=== PATIENT | female | born 1975 | race Caucasian/White ===

== ENCOUNTER 2022-09-04 11:46 | Day surgery (SDC) | payer SELFPAY ==
[2022-09-04] VITALS (31 sets, daily range): BP systolic 106–129; BP diastolic 71–86; PULSE 73–99; RESP 16–20; TEMP 36.6–37; O2SAT 95–99; BMI 29.8; BMI 29.7
--- NOTE | 2022-09-04 12:01 | CRLHL7_ITS ---
For Patients: As a result of the Century Cures Act, medical imaging exams and procedure reports are released immediately into your electronic medical record. You may view this report before your referring provider. If you have questions, please contact your health care provider. INDICATION: Chest pain. TECHNIQUE: CT chest PE was acquired with 95 cc Isovue 370 IV contrast. COMPARISON: None. FINDINGS: Heart and vasculature: Contrast opacification of the pulmonary arterial tree is adequate. No sign of pulmonary embolism. Heart size is normal. Thoracic aorta and pulmonary artery are normal in caliber. Lungs and pleura: No suspicious nodules or infiltrates. No pleural effusions, pleural thickening, or pneumothorax. Lymph nodes/mediastinum: No mediastinal, hilar, or axillary adenopathy. Chest wall: No masses. Upper abdomen: Subtle fat stranding surrounding the gallbladder with possible gallbladder wall thickening, partially visualized. Bones: Unremarkable for age. IMPRESSION: No pulmonary embolism identified. No acute cardiopulmonary process identified. Subtle surrounding fat stranding and possible gallbladder wall thickening, partially visualized in the upper abdomen. If there is clinical concern for cholecystitis consider further evaluation with right upper quadrant ultrasound. Please note that all CT scans at this facility use dose modulation, iterative reconstruction, and/or weight-based dosing when appropriate to reduce radiation dose to as low as reasonably achievable. Dictated by Tony Rodriguez MD @ 09/04/2022 1:06:22 PM (Electronically Signed)
--- NOTE | 2022-09-04 12:03 | CRLHL7_ITS ---
For Patients: As a result of the Century Cures Act, medical imaging exams and procedure reports are released immediately into your electronic medical record. You may view this report before your referring provider. If you have questions, please contact your health care provider. INDICATION: Right upper quadrant abdomen pain. TECHNIQUE: Ultrasound abdomen limited. Sonographic images of the right upper quadrant were obtained using johnson-scale and color Doppler images. COMPARISON: None. FINDINGS: Liver: Normal in size and echotexture. No suspicious masses. No intrahepatic biliary dilatation. Gallbladder: Multiple shadowing gallstones. Gallbladder thick-walled edematous, measuring up to 7 millimeters in thickness with trace pericholecystic fluid. The tensile tester reported a positive sonographic Mccormick`s sign. Common bile duct: 4 mm. Pancreas: Unremarkable. Right kidney: Normal in size. Normal echotexture and cortex. No suspicious masses, stones, or hydronephrosis. Vasculature: Proximal abdominal aorta and IVC are unremarkable. IMPRESSION: Cholelithiasis with gallbladder wall thickening and edema and a positive sonographic Mccormick sign. Findings concerning for acute cholecystitis Dictated by Alexandre Willett MD @ 09/04/2022 2:13:23 PM (Electronically Signed)
--- NOTE | 2022-09-04 12:12 | ED_ITS ---
HPI - General Adult General Time Seen by Provider: 12:12 Date Seen: 09/04/22 Chief complaint: Abdominal Pain Stated complaint: Severe chest pain Time Seen by Provider: 09/04/22 11:47 Source: patient Mode of arrival: ambulatory Limitations: no limitations History of Present Illness HPI narrative: Patient is a 46 year white female presents with epigastric and lower chest pain this been present for the last 24 hours or more. Woke her up from sleep about 5:00 a.m. yesterday it has persisted and gotten little bit worse. She has no history of reflux, no anterior chest pain but describes it in her epigastrium and lower xiphoid area. She has had no cough cold fever, no history of bleeding or clotting problems, she does smoke. She has otherwise been quite healthy nondiabetic nonhypertensive. Patient has had no leg swelling or edema no bleeding or clotting problems she has not traveled recently. She describes her pain as severe in her epigastrium and lower chest wall Related Data Allergies Allergy/AdvReac Type Severity Reaction Status Date / Time No Known Drug Allergies Allergy Verified 09/04/22 11:53 Review of Systems Status of ROS: Reports: 10 or more systems reviewed and unremarkable except as noted in History and below PFSH PFS Social History Smoking Status: Current every day smoker What tobacco products do you use: cigarettes Smoking packs per day: 0.5 Smoking cigarettes per day: 10.0 Years smoked: 30 Smoking pack-years: 15.00 Do you use any of these nicotine containing products: None Second hand tobacco smoke exposure: Yes How often do you have a drink containing alcohol: monthly or less How many standard drinks containing alcohol do you have on a typical day: 1 or 2 How often do you have six or more drinks on one occasion: Never AUDIT-C Alcohol total score: 1 Non-prescribed substance use: denies use service: No Exam Narrative: Exam Narrative: Objective: Patient is in mild distress and discomfort alert orient x3 noncyanotic Vital signs unremarkable HEENT is unremarkable no facial asymmetry no scleral icterus mouth clear Neck is supple Chest clear Heart rhythm without murmur Patient has some mild pleuritic nature to her pain when she takes deep breath it causes some discomfort in the lower chest wall and epigastrium No palpable masses in her abdomen abdomen is otherwise benign, just a little bit of tenderness in her epigastrium I palpate, no mass no peritonitis Extremities are no edema Neurologic nonfocal Skin warm and dry Const: Vital Signs, click to edit/add: Vital Signs - 24 hr 09/04/22 11:54 09/04/22 12:31 09/04/22 11:57 Temperature 97.9 F 97.9 F Pulse Rate 90 Pulse Rate [Pulse Oximeter] 92 Respiratory Rate 20 Blood Pressure 124/79 Blood Pressure [Ri ght Upper Arm] 124/79 Pulse Oximetry 99 97 99 Oxygen Delivery Me thod Room Air 09/04/22 11:58 09/04/22 12:00 Temperature Pulse Rate 99 95 Pulse Rate [Pulse Oximeter] Respiratory Rate Blood Pressure Blood Pressure [Ri ght Upper Arm] Pulse Oximetry 99 99 Oxygen Delivery Me thod Course Vital Signs Vital signs: Initial Vital Signs Temperature 97.9 F 09/04/22 11:54 Temperature Source Temporal Artery Scan 09/04/22 11:54 Pulse Rate 92 09/04/22 11:54 Pulse Rhythm 09/04/22 11:54 Respiratory Rate 20 09/04/22 11:54 Blood Pressure 124/79 09/04/22 11:54 Blood Pressure Mean 94 09/04/22 11:54 Blood Pressure Position Supine 09/04/22 11:54 Pulse Oximetry 99 09/04/22 11:54 Oxygen Delivery Method 09/04/22 11:54 Vital Signs Temperature 97.9 F 09/04/22 11:54 Pulse Rate 92 09/04/22 11:54 Respiratory Rate 20 09/04/22 11:54 Blood Pressure 124/79 09/04/22 11:54 Pulse Oximetry 99 09/04/22 11:54 Oxygen Delivery Method 09/04/22 11:54 Temperature 97.9 F 09/04/22 11:57 Pulse Rate 95 09/04/22 12:00 Respiratory Rate 20 09/04/22 11:54 Blood Pressure 124/79 09/04/22 11:57 Pulse Oximetry 97 09/04/22 12:31 Oxygen Delivery Method 09/04/22 11:54 Medical Decision Making [facility] Narrative Medical decision making narrative: Patient is a 46 year white female with epigastric lower chest wall pain. At this point I think we have a significant differential including acute coronary syndrome, PE, gallbladder issues, peptic ulcer disease. Patient will get a GI cocktail, will give her aspirin as well, EKG done in by my read shows normal sinus rhythm incomplete right bundle-branch block no acute ST T wave changes. Patient will get a CT scan of the chest to rule out PE in other intrathoracic pathology, will get right upper quadrant ultrasound, check labs including a CBC liver function profile lipase amylase, CRP. Patient is comfortable assessment and plan at this point. Will give her IV fluid IV morphine and IV Protonix. Addendum: The patient has an elevated white count, she has an ultrasound that shows gallbladder wall thickening pericholecystic fluid, possibly a gallbladder neck stone. Her liver function tests look unremarkable. The patient's CT scan shows no PE but gallbladder inflammation as well. Her D-dimer is elevated likely due to the gallbladder infection. Discussed the case with Dr. Le who kindly will check on the patient and give update about surgical intervention. Patient last reported eating last night. Lab Data Labs: Lab Results 09/04/22 09/04/22 09/04/22 Range/Units 12:07 12:07 12:07 WBC 13.93 H (4.50-11.00) K/uL RBC 4.86 (4.00-5.20) m/uL Hgb 14.7 (12.0-16.0) gm/dL Hct 43.2 (33.0-51.0) % MCV 89 (80-100) fL MCH 30 (26-34) pg MCHC 34 (32-36) gm/dL RDW Coeff of June 12.1 (11.5-15.5) % Plt Count 373 (140-440) K/uL Neut % (Auto) 76.5 H (42.0-72.0) % Lymph % (Auto) 16.5 L (20-44) % [place] % (Auto) 6.2 (0.0-11.0) % Eos % (Auto) 0.6 (0.0-7.0) % Baso % (Auto) 0.1 (0.0-3.0) % Neut # (Auto) 10.70 H (1.7-7.0) K/uL Lymph # (Auto) 2.30 (0.90-2.90) K/uL [place] # (Auto) 0.90 (0.00-0.90) K/UL Eos # (Auto) 0.10 (0.00-0.50) K/uL Baso # (Auto) 0.00 (0.00-0.30) K/uL D-Dimer Quant (PE/DVT) 0.89 H (0.00-0.50) ug/ml Sodium 139 (135-149) mmol/L Potassium 4.0 (3.6-5.1) mmol/L Chloride 107 (96-114) mmol/L Carbon Dioxide 24 (20-32) mmol/L BUN 11 (5-24) mg/dL Creatinine 0.7 (0.5-1.5) mg/dL Estimated Creat Clear 98.69 Estimated GFR 109 ml/min Glucose 119 H (60-115) mg/dL Lactate (0.5-1.9) mmol/L Calcium 9.2 (8.4-10.6) mg/dL Total Bilirubin 0.6 (0.1-1.5) mg/dL Direct Bilirubin 0.2 (0.0-0.5) mg/dL AST 22 (12-35) U/L ALT 22 (4-35) U/L Alkaline Phosphatase 74 (40-150) U/L Troponin I < 0.01 L (0.01-0.04) ng/mL C-Reactive Protein 2.5 H (0.5-1.0) mg/dL NT-Pro-B Natriuret Pep 31 pg/mL Total Protein 8.1 (6.0-8.3) g/dL Albumin 4.7 (3.3-5.0) g/dL Amylase 85 (18-89) U/L Lipase 54 (23-300) U/L HCG, Qual (Negative) SARS-CoV-2 (PCR) (Negative) Influenza Type A (PCR) (Negative) Influenza Type B (PCR) (Negative) RSV (PCR) (Negative) 09/04/22 09/04/22 09/04/22 Range/Units 12:07 12:07 12:10 WBC (4.50-11.00) K/uL RBC (4.00-5.20) m/uL Hgb (12.0-16.0) gm/dL Hct (33.0-51.0) % MCV (80-100) fL MCH (26-34) pg MCHC (32-36) gm/dL RDW Coeff of June (11.5-15.5) % Plt Count (140-440) K/uL Neut % (Auto) (42.0-72.0) % Lymph % (Auto) (20-44) % [place] % (Auto) (0.0-11.0) % Eos % (Auto) (0.0-7.0) % Baso % (Auto) (0.0-3.0) % Neut # (Auto) (1.7-7.0) K/uL Lymph # (Auto) (0.90-2.90) K/uL [place] # (Auto) (0.00-0.90) K/UL Eos # (Auto) (0.00-0.50) K/uL Baso # (Auto) (0.00-0.30) K/uL D-Dimer Quant (PE/DVT) (0.00-0.50) ug/ml Sodium (135-149) mmol/L Potassium (3.6-5.1) mmol/L Chloride (96-114) mmol/L Carbon Dioxide (20-32) mmol/L BUN (5-24) mg/dL Creatinine (0.5-1.5) mg/dL Estimated Creat Clear Estimated GFR ml/min Glucose (60-115) mg/dL Lactate 0.7 (0.5-1.9) mmol/L Calcium (8.4-10.6) mg/dL Total Bilirubin (0.1-1.5) mg/dL Direct Bilirubin (0.0-0.5) mg/dL AST (12-35) U/L ALT (4-35) U/L Alkaline Phosphatase (40-150) U/L Troponin I (0.01-0.04) ng/mL C-Reactive Protein (0.5-1.0) mg/dL NT-Pro-B Natriuret Pep pg/mL Total Protein (6.0-8.3) g/dL Albumin (3.3-5.0) g/dL Amylase (18-89) U/L Lipase (23-300) U/L HCG, Qual Negative (Negative) SARS-CoV-2 (PCR) Negative SARS-CoV-2 (Negative) Influenza Type A (PCR) Negative PCR FLU A (Negative) Influenza Type B (PCR) Negative PCR FLU B (Negative) RSV (PCR) Negative PCR RSV (Negative) Discharge Plan Discharge Clinical Impression: Chest pain, Acute cholecystitis Patient Disposition: Admitted As Inpatient
[2022-09-04 12:16] LABS: Lactate* 0.7 mmol/L (0.5-1.9)
[2022-09-04] MEDS: ASPIRIN 81 MG TAB.CHEW 324 MG PO (12:18)
[2022-09-04] MEDS: GI COCKTAIL (VISC LIDO/ANTACID) 30 ML PO (12:19)
[2022-09-04] MEDS: MORPHINE 4 MG/ML INJ IVP ×2 (12:19→14:04)
[2022-09-04] MEDS: 0.9 % SODIUM CHLORIDE 1000 ml 1,000 ML 6000 ML IV (12:20)
[2022-09-04] MEDS: PANTOPRAZOLE SODIUM 40 MG INJ IVP (12:20)
[2022-09-04 12:36] LABS: Albumin* 4.7 g/dL (3.3-5.0); Basophils Percent Auto 0.1 % (0.0-3.0); Chloride* 107 mmol/L (96-114); Eosinophils Percent Auto 0.6 % (0.0-7.0); Hematocrit 43.2 % (33.0-51.0); Hemoglobin* 14.7 gm/dL (12.0-16.0); Immature Granulocytes Pct Auto 0.1 %; Lymphocytes Percent Auto 16.5 % (20-44); Mean Corpuscular HGB Conc 34 gm/dL (32-36); Mean Corpuscular Hemoglobin 30 pg (26-34); Mean Corpuscular Volume 89 fL (80-100); Monocytes Percent Auto 6.2 % (0.0-11.0); Neutrophils Percent Auto 76.5 % (42.0-72.0); Platelet Count* 373 K/uL (140-440); RDW Coefficient of Variation % 12.1 % (11.5-15.5); Red Blood Count 4.86 m/uL (4.00-5.20); White Blood Count* 13.93 K/uL (4.50-11.00)
[2022-09-04 12:37] LABS: Sodium* 139 mmol/L (135-149)
[2022-09-04 12:38] LABS: Slide Review Reflex No
[2022-09-04 12:39] LABS: Amylase* 85 U/L (18-89); Carbon Dioxide* 24 mmol/L (20-32); Creatinine* 0.7 mg/dL (0.5-1.5); D Dimer Quantitative* 0.89 ug/ml (0.00-0.50); Est. Creatinine Clearance* 98.69; Estimated Glomerular Filt Rate 109 ml/min; Total Protein* 8.1 g/dL (6.0-8.3)
[2022-09-04 12:40] LABS: Alanine Aminotransferase* 22 U/L (4-35); Alkaline Phosphatase* 74 U/L (40-150); Aspartate Amino Transferase* 22 U/L (12-35); Bilirubin Direct* 0.2 mg/dL (0.0-0.5); Bilirubin Total* 0.6 mg/dL (0.1-1.5); Blood Urea Nitrogen* 11 mg/dL (5-24); Calcium* 9.2 mg/dL (8.4-10.6); Glucose* 119 mg/dL (60-115); Lipase* 54 U/L (23-300)
[2022-09-04 12:42] LABS: C Reactive Protein* 2.5 mg/dL (0.5-1.0)
[2022-09-04 12:49] LABS: HCG Qualitative Serum* Negative (Negative)
[2022-09-04 12:51] LABS: NT Pro B Type NatriureticPept* 31 pg/mL
[2022-09-04 13:00] LABS: Troponin I* < 0.01 ng/mL (0.01-0.04)
[2022-09-04 13:01] LABS: PCR FLU A Negative PCR FLU A (Negative); PCR FLU B Negative PCR FLU B (Negative); PCR RSV Negative PCR RSV (Negative)
[2022-09-04 13:02] LABS: SARS PCR* Negative SARS-CoV-2 (Negative)
[2022-09-04] MEDS: PIPERACILLIN/TAZOBACTAM 4.5 GM in 0.9 % SODIUM CHLORIDE Mini-bag 100 ML IVPB (14:05)
[2022-09-04] MEDS: HYDROmorphone 0.5 mg/0.5 ml inj 1 MG IVP (15:57)
--- NOTE | 2022-09-04 16:59 | PM.GSHP ---
History of Present Illness History of Present Illness Date Seen: 09/04/22 Chief complaint: Severe chest pain Narrative: Ivonne Atkins is a 46 year old female who presented to the ER today with some epigastric pain which began yesterday around 530 in the morning. She states that the pain is in her mid upper abdomen lower chest which radiates around to her back. She states that she has never had pain like this before. She is short of breath because it hurts to take deep breaths. Nothing seems to make the pain better except for pain medication. She states that she has been eating and has not made the pain worse. She has had nausea. She has been having normal bowel movements. No urinary symptoms. She had a chest CT which did not reveal a blood clot but did show inflammation about the gallbladder. Review of Systems Status of ROS: Reports: 10 or more systems reviewed and unremarkable except as noted in History and below [facility] Medical History (Updated 09/04/22 @ 17:04 by Hilda Gupta MD) Obesity Tobacco dependence Surgical History (Updated 09/04/22 @ 17:04 by Hilda Gupta MD) History of hysterectomy S/P laparoscopy Social History (Updated 09/04/22 @ 17:05 by Hilda Gupta MD) Narrative: She does smoke half a pack a day. Drinks alcohol rarely. She works in a [employer] center for an [employer]. Highest level of school completed/degree received: high school graduate Smoking Status: Current every day smoker What tobacco products do you use: cigarettes Smoking packs per day: 0.5 Smoking cigarettes per day: 10.0 Years smoked: 30 Smoking pack-years: 15.00 Do you use any of these nicotine containing products: None Second hand tobacco smoke exposure: Yes How often do you have a drink containing alcohol: monthly or less How many standard drinks containing alcohol do you have on a typical day: 1 or 2 How often do you have six or more drinks on one occasion: Never AUDIT-C Alcohol total score: 1 Non-prescribed substance use: denies use Caffeine: No service: No Meds Home Medications and Allergies Allergies Allergy/AdvReac Type Severity Reaction Status Date / Time No Known Drug Allergies Allergy Verified 09/04/22 11:53 Exam Narrative: Exam Narrative: General appearance: Alert, cooperative, and in no distress Eyes: PERRLA, eye lids clear, and sclera white HENT Head: Normocephalic Ears: External ears normal Pulmonary: Clear to auscultation bilaterally Cardiovascular Heart: Regular rate and rhythm Extremities: warm and well perfused Gastrointestinal Abdominal: Protuberant. Scars consistent with surgical history. She is tender in the epigastric and right upper quadrant with guarding. Musculoskeletal: Extremities: Upper: Both upper extremities have normal joint range of motion and intact strength. Lower: Both lower extremities have normal joint range of motion and intact strength. Skin: Normal skin color, texture, and turgor. No rashes or lesions. Neurologic: No focal deficits Psychiatric: Alert, oriented, cooperative, normal affect. Const: Vital Signs, click to edit/add: Vital Signs - 24 hr 09/04/22 11:54 09/04/22 12:31 09/04/22 11:57 Temperature 97.9 F 97.9 F Pulse Rate 90 Pulse Rate [Pulse Oximeter] 92 Respiratory Rate 20 Blood Pressure 124/79 Blood Pressure [Ri ght Upper Arm] 124/79 Pulse Oximetry 99 97 [facility] 09/04/22 11:58 09/04/22 12:00 09/04/22 15:40 Temperature Pulse Rate 99 95 Pulse Rate [Pulse Oximeter] 88 Respiratory Rate 16 Blood Pressure Blood Pressure [Ri ght Upper Arm] 111/79 Pulse Oximetry 99 99 98 [facility] 09/04/22 16:23 09/04/22 12:53 09/04/22 13:00 Temperature 98.4 F Pulse Rate 93 91 Pulse Rate [Pulse Oximeter] Respiratory Rate 16 Blood Pressure Blood Pressure [Ri ght Upper Arm] Pulse Oximetry 95 98 96 [facility] 09/04/22 13:01 09/04/22 13:17 09/04/22 13:32 Temperature Pulse Rate 90 87 88 Pulse Rate [Pulse Oximeter] Respiratory Rate Blood Pressure 119/79 116/71 118/77 Blood Pressure [Ri ght Upper Arm] Pulse Oximetry 96 99 97 Oxygen Delivery Nj thod 09/04/22 13:33 09/04/22 13:47 09/04/22 14:07 Temperature Pulse Rate 92 98 85 Pulse Rate [Pulse Oximeter] Respiratory Rate Blood Pressure 127/81 Blood Pressure [Ri ght Upper Arm] Pulse Oximetry 99 98 [facility] 09/04/22 14:08 09/04/22 14:17 09/04/22 14:30 Temperature Pulse Rate 91 91 88 Pulse Rate [Pulse Oximeter] Respiratory Rate Blood Pressure 126/83 115/84 Blood Pressure [Ri ght Upper Arm] Pulse Oximetry 99 98 97 Oxygen Delivery Me thod 09/04/22 14:32 09/04/22 14:46 09/04/22 15:00 Temperature Pulse Rate 85 87 84 Pulse Rate [Pulse Oximeter] Respiratory Rate Blood Pressure 119/79 112/79 Blood Pressure [Ri ght Upper Arm] Pulse Oximetry 96 98 97 Oxygen Delivery Me thod 09/04/22 15:02 09/04/22 15:17 09/04/22 15:30 Temperature Pulse Rate 78 87 85 Pulse Rate [Pulse Oximeter] Respiratory Rate Blood Pressure 106/76 115/80 Blood Pressure [Ri ght Upper Arm] Pulse Oximetry 98 98 97 Oxygen Delivery Me thod 09/04/22 15:32 09/04/22 15:47 09/04/22 16:00 Temperature Pulse Rate 73 89 87 Pulse Rate [Pulse Oximeter] Respiratory Rate Blood Pressure 111/79 129/86 Blood Pressure [Ri ght Upper Arm] Pulse Oximetry 97 98 97 Oxygen Delivery Me thod 09/04/22 16:01 Temperature Pulse Rate 87 Pulse Rate [Pulse Oximeter] Respiratory Rate Blood Pressure 111/85 Blood Pressure [Ri ght Upper Arm] Pulse Oximetry 95 Oxygen Delivery Me thod Results Results Labs: White blood cell count was elevated at 13.9. CRP was also elevated. LFTs and lipase are within normal limits. CT scan - chest: report reviewed and image reviewed Abdominal ultrasound report/results: report reviewed and image reviewed Additional studies: Chest CT done 09/04/2022 IMPRESSION: No pulmonary embolism identified. No acute cardiopulmonary process identified. Subtle surrounding fat stranding and possible gallbladder wall thickening, partially visualized in the upper abdomen. If there is clinical concern for cholecystitis consider further evaluation with right upper quadrant ultrasound. Please note that all CT scans at this facility use dose modulation, iterative reconstruction, and/or weight-based dosing when appropriate to reduce radiation dose to as low as reasonably achievable. Ultrasound of the abdomen done 09/04/2022 IMPRESSION: Cholelithiasis with gallbladder wall thickening and edema and a positive sonographic Mccormick sign. Findings concerning for acute cholecystitis Assessment and Plan Assessment and plan (1) Acute cholecystitis: Status: Acute (2) Tobacco dependence: Status: Acute Plan The patient is a 46-year-old female with acute cholecystitis. I explained that the treatment for this is laparoscopic cholecystectomy. We discussed the procedure as well as risks and benefits of surgery which include bleeding, infection, bile leak, conversion to open or injury to other structures, specifically the common bile duct. We also discussed recovery. There is no evidence of choledocholithiasis at this time therefore intraoperative cholangiogram is not necessary. Given her elevated white blood cell count we will order antibiotics for her overnight. She may have ice chips and sips of clear liquid. We will plan on cholecystectomy in the morning.
[2022-09-04] MEDS: LACTATED RINGERS 1000 ML 1,000 ML 125 ML IV (18:05)
[2022-09-04] MEDS: ONDANSETRON 2 MG/ML inj IVP (18:16)
--- NOTE | 2022-09-04 18:50 | PC.NURSE ---
shift note: pt admit to rm 260 via bed @ 1600. Pt nauseated upon arrival. Pt received zofran for 300cc emesis @ 1830. IV patent. Pt sleepy
[2022-09-04] MEDS: PIPERACILLIN/TAZOBACTAM 3.375 GM in 0.9 % SODIUM CHLORIDE Mini-bag 100 ML IVPB (21:13)
[2022-09-05] VITALS (22 sets, daily range): BP systolic 105–130; BP diastolic 68–86; PULSE 78–112; RESP 12–20; TEMP 36.7–37.4; O2SAT 92–98
[2022-09-05] MEDS: HYDROmorphone 0.5 mg/0.5 ml inj IVP ×4 (01:42→16:14)
[2022-09-05] MEDS: PIPERACILLIN/TAZOBACTAM 3.375 GM in 0.9 % SODIUM CHLORIDE Mini-bag 100 ML IVPB (04:20)
[2022-09-05] MEDS: LACTATED RINGERS 1000 ML 1,000 ML 125 ML IV (04:20)
--- NOTE | 2022-09-05 06:20 | PC.NURSE ---
pt i alert and oriented. C/o back pain given prn dilaudid. No nausea or emesis. Up to the bathroom with SBA. IV Abx. VSS. Pre OP completed.
[2022-09-05] MEDS: ONDANSETRON 2 MG/ML inj IVP (08:04)
[2022-09-05] MEDS: CEFAZOLIN 2 GM INJ IVP (09:50)
[2022-09-05] MEDS: BUPIVACAINE 0.25% 30 ML INJECTION (10:32)
--- NOTE | 2022-09-05 11:21 | SUR.OPER ---
, Gene, updated via phone on procedure progress. [id number]
--- NOTE | 2022-09-05 12:09 | P.GSOP_ITS ---
Operative Note Date of procedure: 09/05/22 Pre-op diagnosis: Acute cholecystitis Post-op diagnosis: Same Type of Procedure: Laparoscopic cholecystectomy Indications: The patient is a 46-year-old female who presented with severe epigastric pain and was found to have a thickened gallbladder with pericholecystic fluid consistent with acute cholecystitis. After discussion of options, she agreed to proceed with the recommended treatment which was cholecystectomy. Procedure Description: After discussing the risks and benefits of the procedure, the patient signed informed consent.? The operative site was marked and the patient was brought to the operating room and placed on the operating table in supine position.? Care was taken to pad the patient's pressure points.?? The patient was then intubated by anesthesia.?? The operative site was then prepped and draped in the usual sterile fashion.? A time-out was then performed. Entrance to the abdomen was gained via a 5 mm Visiport in the left upper quadrant. The abdomen was insufflated and briefly surveyed for signs of injury. There was none. A 10 mm umbilical port was placed as well as 2 working ports along the right costal margin, all under direct vision. The patient was then placed in reverse Trendelenburg position with the right side up. The gallbladder was firm and edematous. Needle was advanced into the abdomen and 10 mL of bile were aspirated. The gallbladder was thickened and grasping it was difficult, however this was eventually accomplished and the fundus was grasped and retracted cephalad. The infundibulum was grasped. A combination of hook cautery and blunt dissection was used to carefully dissect out the cystic duct and artery until they could clearly be seen entering the gallbladder without any intervening structures. There was a significant amount of edema and an anticipated amount of oozing from the inflamed tissue. The gallbladder was dissected off the cystic plate to achieve the critical view. Once this was achieved the cystic artery was clipped with 2 clips proximally and 1 clip distally and transected with scissors. The cystic duct was enlarged and too large for a 5 mm clip so the decision was made to ligate this with an endoloop. The cystic duct was transected at the junction with the gallbladder. The gal lbladder was grasped with a grasper to avoid bile or stone spillage into the abdomen. This was retracted away. The cystic duct was examined and gently milked retrograde looking for any stones that might be impacted. There did not appear to be any stones within the cystic duct. An 0 Vicryl as well as an 0 PDS endoloop were each placed on the cystic duct stump. Once this was done, the gallbladder was then taken off of the liver bed and removed from the abdomen using an Endo-Catch bag. The gallbladder was quite large firm and full of stones which necessitated widening the umbilical incision to permit removal. Interrupted 0 Vicryl suture was then used to partially close the fascia. The 10 mm port was reinserted. The abdomen was again insufflated. The gallbladder bed was surveyed for hemostasis which appeared adequate. The ports were then removed and the abdomen desufflated. The umbilical port fascia was then completely closed with 0 Vicryl. The skin was closed with absorbable subcuticular suture. Sterile dressings were then applied. Instrument sponge and needle counts were correct at the end of the case. The patient was then woken and transferred to the PACU in stable condition. ? The patient tolerated the procedure well. Findings: Acute cholecystitis secondary to cholelithiasis Anesthesia: HARISH Surgeon: Hilda Gupta MD Estimated blood loss (mL): 50 Condition: stable Disposition: PACU
--- NOTE | 2022-09-05 12:24 | W.ANESCHARGE ---
Anesthesia Charges Start Date/Time Anesthesia Start Date: 09/05/22 Anesthesia Start Time: 09:43 Stop Date/Time Anesthesia Stop Date: 09/05/22 Anesthesia Stop Time: 12:16
[2022-09-05] MEDS: ONDANSETRON 2 MG/ML inj 4 MG IVP (12:30)
[2022-09-05] MEDS: HYDROCODONE-ACETAMIN 5-325 MG 1 TAB PO ×2 (14:50→16:13)
--- NOTE | 2022-09-05 19:29 | PC.NURSE ---
shift note: pt to room via bed from pacu @ 1300. post op vss initiated. pt tolerated water, toast and popsicles. pt up to bathroom x2. Pt had some slight bleeding at upper rt lap site. bandaids applied to lap sites. Pt has 4 lap sites that are intact to abd. bs active x4. abd slightly distended. Pt belching. LS clr. Pt ambulated in acuna with sba for 300ft with steady gait. pt medicated for 3/10 abd pain. IV dc'd intact at dc. Reviewed dc instructions with pt and copies sent with pt. Belongings reviewed and sent with pt at dc.
== END 2022-09-05 17:55 | disposition home or self-care (01) ==
LOC: SS 09-05 09:43 → ED 09-05 09:43 → MEDSURG 09-05 09:44
PROVIDERS: Emergency Provider Family Medicine; PCP Family Medicine; Visit Provider Surgery
PROC: 0FT44ZZ Resection of Gallbladder, Percutaneous Endoscopic Approach (ICD-10-PCS; CPT 47562; principal; 2022-09-05 09:45)
DX: K80.00 Calculus of gallbladder with acute cholecystitis without obstruction (principal); R07.9 Chest pain, unspecified; I45.10 Unspecified right bundle-branch block
CPT/HCPCS: 47562; 00790; 36415; 71260; 76705; 80048; 80076; 82150; 83605; 83690; 83880; 84484; 84703; 85025; 85379; 86140; 87502; 87634; 87635; 88304; 93005; 94761; 99285; A9270; C9113; J0330; J0690; J1170; J1885; J2250; J2270; J2370; J2405; J2543; J2704; J3010; J3490; J7030; J7120; Q9967